=== PATIENT | male | born 2000 | race African-American/Black ===

== ENCOUNTER 2019-08-05 06:58 | Emergency (ER) | payer OTHER ==
[~2019-08-05] VITALS: Ht 180.3 cm; Wt 74.8 kg
[2019-08-05 07:02] VITALS: BP 108/75
[2019-08-05] MEDS ORDERED: ONDANSETRON ODT8 MG PO ×2 (08:16→09:00)
[2019-08-05 09:32] LABS: HEMATOCRIT 40.2 % (42.0-52.0); HEMOGLOBIN 13.1 gm/dL (14.0-18.0); MCH 26.6 pg (26.0-34.0); MCHC 32.5 g/dL (28.0-37.0); RBC 4.9 mil/uL (4.50-6.00); RDW 11.9 % (10.5-14.5); WBC 11.5 thou/uL (4.0-11.0)
[2019-08-05 09:46] LABS: ANION GAP 9 mmol/L (7-16); BUN 19 mg/dL (7-18); CALCIUM 8.8 mg/dL (8.5-10.1); CHLORIDE 105 mmol/L (98-107); CO2 26 mmol/L (21-32); CREATININE 1.1 mg/dL (0.7-1.3); GLUCOSE 121 mg/dL (74-106); POTASSIUM 3.3 mmol/L (3.5-5.1); SODIUM 140 mmol/L (136-145)
[2019-08-05 09:52] LABS: ALBUMIN 4.1 g/dL (3.4-5.0); LIPASE 104 U/L (73-393); SGOT 16 U/L (15-37); TOTAL BILIRUBIN 0.5 mg/dL (<0.1-1.0)
[2019-08-05 10:03] LABS: SGPT < 6 U/L (30-65)
[2019-08-05 10:34] VITALS: BP 98/57
[2019-08-05 11:04] VITALS: BP 110/68
== END 2019-08-05 11:05 | disposition home or self-care (01) ==
LOC: ER 06:58 → EROBS 10:48 → ER 11:05
PROVIDERS: Emergency Medicine
DX: R11.2 Nausea with vomiting, unspecified (principal); R10.84 Generalized abdominal pain

== ENCOUNTER 2021-05-15 04:40 | Emergency (ER) | payer OTHER ==
[~2021-05-15] VITALS: Ht 180.3 cm; Wt 79.4 kg
[~2021-05-15 04:40] MED LIST: ONDANSETRON ODT8 MG PO
[2021-05-15 05:12] LABS: BASOPHILS 0.1 % (0.0-2.0); EOSINOPHILS 0.6 % (0.0-3.0); HEMATOCRIT 38.7 % (42.0-52.0); HEMOGLOBIN 12.8 gm/dL (14.0-18.0); LYMPHOCYTES 3.5 % (24.0-44.0); MCH 27.4 pg (26.0-34.0); MCHC 33.2 g/dL (28.0-37.0); MCV 82.6 fL (80.0-100.0); MONOCYTES 3.2 % (1.0-8.0); PLATELET COUNT 238 thou/uL (150-400); POLYS 92.6 % (36.0-66.0); RBC 4.68 mil/uL (4.50-6.00); RDW 11.9 % (10.5-14.5)
[2021-05-15 06:04] VITALS: BP 95/37
[2021-05-15 06:08] LABS: CALCIUM 9.2 mg/dL (8.5-10.1); CREATININE 1.2 mg/dL (0.7-1.3); POTASSIUM 3.4 mmol/L (3.5-5.1)
[2021-05-15 06:14] LABS: ALBUMIN 4.3 g/dL (3.4-5.0); TOTAL BILIRUBIN 0.8 mg/dL (0.2-1.0); TOTAL PROTEIN 7.4 g/dL (6.4-8.2)
== END 2021-05-15 06:05 | disposition left against medical advice (07) ==
LOC: ER 04:40
PROVIDERS: Emergency Medicine
DX: R11.2 Nausea with vomiting, unspecified (principal); Z20.822 Contact with and (suspected) exposure to COVID-19; R10.817 Generalized abdominal tenderness